=== PATIENT | male | born 2000 | race Caucasian/White ===

== ENCOUNTER → 2023-06-06 10:04 | Outpatient (CLI) | payer OTHER | END | disposition home or self-care (01) | LOC: LAB 10:04 | DX: Z02.1 Encounter for pre-employment examination (principal) ==

== ENCOUNTER 2023-08-30 11:00 | Outpatient (CLI) | payer OTHER | END 2023-08-30 11:10 | disposition home or self-care (01) | LOC: PPH VACUNA 11:00 | PROVIDERS: ATTEND Emergency Medicine Pediatric Emergency Medicine | DX: Z23 Encounter for immunization (principal) ==